=== PATIENT | female | born 1955 | race Caucasian/White ===

== ENCOUNTER 2023-01-24 00:33 | Day surgery (SDC) | payer MEDICARE, MEDICAID, SELFPAY ==
[2023-01-11 10:44] VITALS: BMI 45.8
[2023-01-24 08:04] VITALS: BP 134/82; PULSE 95; RESP 18; TEMP 36.1; O2SAT 100
[2023-01-24] MEDS: LACTATED RINGERS 1,000 ML 150 ML IV CONT (08:18)
--- NOTE | 2023-01-24 08:27 | PM.IMHP ---
H&P: HPI History of Present Illness Date/Time: 01/24/23 08:27 Chief Complaint: History of colon polyps Narrative: This is a 67-year-old woman who presents for colonoscopy. Her last colonoscopy was 6 years ago and 2 polyps were removed. She denies hematochezia melena. She denies any family history of colon cancer. Review of Systems Review of Systems: All systems reviewed & are unremarkable except as noted in HPI and below Constitutional: Constitutional: Denies chills, Denies fever(s), Denies headache(s) and Denies weight loss Eyes: Eyes: Denies change in vision ENT: Denies dizziness, Denies headache(s), Denies neck mass and Denies throat swelling Cardiovascular: Cardiovascular: Denies chest pain, Denies lightheadedness and Denies dyspnea Respiratory: Respiratory: Denies cough, Denies dyspnea and Denies wheezing Gastrointestinal: Gastrointestinal: Denies abdominal pain, Denies change in bowel habits, Denies nausea and Denies vomiting Genitourinary: Genitourinary: Denies hematuria and Denies dysuria Musculoskeletal: Musculoskeletal: Reports as per HPI Integumentary/Breasts: Skin/Breast: Reports as per HPI Neurologic: Denies dizziness and Denies headache(s) Allergic/Immunologic: Allergic/Immunologic: Denies throat swelling and Denies wheezing [facility] Social History Social History (System 12/26/22 @ 13:47 by Reshma Allen) Smoking status: Never smoker Alcohol intake: current Alcohol use details: rarely Substance use: current Other substance usage details: [facility] Living arrangements: alone Spiritual care concerns: No Meds Home Medications and Allergies Home Medications Medication Instructions Recorded Confirmed Type Women's 50 Plus Multivitamin 1,000 mg PO DAILY 01/11/23 01/11/23 History celecoxib 200 mg capsule 200 mg PO DAILY 01/11/23 01/11/23 History cholecalciferol (vitamin D3) 100 100 mcg PO ONCE 01/11/23 01/11/23 History mcg (4,000 unit) capsule omeprazole 40 mg capsule,delayed 40 mg PO DAILY 01/11/23 01/11/23 History release Allergies Allergy/AdvReac Type Severity Reaction Status Date / Time No Known Allergies Allergy Verified 01/24/23 08:04 Vital Signs Vital Signs - 24 hr 01/24/23 08:04 Temperature 36.1 C L Pulse Rate 95 Respiratory Rate 18 Blood Pressure 134/82 Pulse Oximetry 100 Oxygen Delivery Room Air Exam Const: General: no acute distress and alert Orientation/consciousness: patient oriented x3 HENMT: Head: normocephalic and atraumatic Ears: hearing grossly normal bilaterally Face/Nose/Sinus: Normal nares present Mouth: Yes Normal oral and palatal mucosa present Eyes: Periorbital: periorbital findings normal Sclera: sclerae normal EOM: EOMs intact bilaterally Neck: Neck: normal visual inspection, no lymphadenopathy and trachea midline Chest: Chest palpation & inspection: normal inspection of the chest Resp: Effort & Inspection: normal respiratory effort Auscultation: clear to auscultation bilaterally Cardio: Jugular venous distension: no JVD Rate: regular rate Rhythm: regular rhythm Heart sounds: S1 normal heart sound present and S2 normal heart sound present Peripheral pulses: Peripheral pulses 2+ throughout GI: Inspection: normal to inspection GI Palp: Yes Soft to palpation, No Tenderness to palpation present (GI), No Guarding due to palpation present (GI) and No Rebound tenderness present Percussion: Yes normal to percussion Auscultation: normal bowel sounds : General: Yes no CVA tenderness Back/Spine/Pelvis: Back: no CVA tenderness Neuro: General: patient oriented x3, no focal motor deficits and CN's II-XI intact bilaterally Cognition (Neuro): normal cognition Speech: normal speech Motor exam (neuro): 5/5 motor strength present throughout Extrem: General: capillary refill normal and no clubbing, cyanosis or edema Assessment and Plan Assessment and plan (1) History of colon polyps: Code(s): Z86
--- NOTE | 2023-01-24 08:33 | WPDANESEPPF ---
Anes - Initial Pre Proc Eval Procedure: Operation Date: 01/24/23 08:30 Proposed Procedures p Colonoscopy - Vinayak Roberts DO Date/Time: 01/24/23 08:33 Surgeon: Vinayak Roberts DO Pre Op Diagnosis: hx of adenoma Patient Data Age: 67 Gender: F Height: 1.55 m Weight: 108.9 kg Last Vital Signs Temp 36.1 C L 01/24/23 08:04 Pulse 95 01/24/23 08:04 Resp 18 01/24/23 08:04 BP 134/82 01/24/23 08:04 Pulse Ox 100 01/24/23 08:04 O2 Del Method Room Air 01/24/23 08:04 Allergies Allergy/AdvReac Type Severity Reaction Status Date / Time No Known Allergies Allergy Verified 01/24/23 08:04 Home Medications Medication Instructions Recorded Confirmed Type Women's 50 Plus Multivitamin 1,000 mg PO DAILY 01/11/23 01/11/23 History celecoxib 200 mg capsule 200 mg PO DAILY 01/11/23 01/11/23 History cholecalciferol (vitamin D3) 100 100 mcg PO ONCE 01/11/23 01/11/23 History mcg (4,000 unit) capsule omeprazole 40 mg capsule,delayed 40 mg PO DAILY 01/11/23 01/11/23 History release Patient hx anesthesia problems: none Family hx anesthesia problems: none Results Review: All pre-operative results and documents have been reviewed as part of the pre-operative evaluation. COUNTS INCLUDE 234 BEDS AT THE [facility] Past Medical History Medical History (Updated 01/24/23 @ 08:33 by Robert Jay MD) Morbid obesity Surgical History Surgical History (Updated 01/24/23 @ 08:33 by Robert Jay MD) H/O colonoscopy Social History Social History Smoking status: Never smoker Alcohol intake: current Alcohol use details: rarely Substance use: current Other substance usage details: cbd gummies Living arrangements: alone Spiritual care concerns: No Anes - Eval Final PreProcedure Day of Procedure 01/24/23 08:33 Patient weight: morbidly obese Heart: regular rate and rhythm Lungs: clear to auscultation Airway: Mallampati scale class II and other (edentulous) Neurological: alert and oriented Last oral intake: >/= 8 hours ASA classification: III Emergent: no Anesthetic plan: proceed Anesthesia type and monitoring: general GIVS and standard monitoring Results Review: All pre-operative results and documents have been reviewed as part of the pre-operative evaluation. Informed Consent: The patient's anesthetic plan and its attendant risks and benefits were discussed with the patient/family/POA. Questions were solicited and answers provided to the satisfaction of the patient/family/POA.
[2023-01-24 08:54] VITALS: BP 101/55; PULSE 82; RESP 23; O2SAT 95
[2023-01-24 09:04] VITALS: BP 104/58; PULSE 83; RESP 22; O2SAT 99
[2023-01-24 09:14] VITALS: BP 119/69; PULSE 84; RESP 17; O2SAT 100
== END 2023-01-24 09:32 | disposition home or self-care (01) ==
PROVIDERS: PCP Internal Medicine; Visit Provider Surgery
PROC: 0DJD8ZZ Inspection of Lower Intestinal Tract, Via Natural or Artificial Opening Endoscopic (ICD-10-PCS; CPT 45378; principal; 2023-01-24 08:30)
DX: Z12.11 Encounter for screening for malignant neoplasm of colon (principal); K57.30 Diverticulosis of large intestine without perforation or abscess without bleeding; Z86.010 Personal history of colon polyps; E66.01 Morbid (severe) obesity due to excess calories; Z68.42 Body mass index [BMI] 45.0-49.9, adult
CPT/HCPCS: G0105; J2704; J7120